=== PATIENT | female | born 1980 | race Caucasian/White ===

== ENCOUNTER 2016-10-09 07:54 | Emergency (ER) | payer MEDICAID ==
--- NOTE | 2016-10-09 08:04 | UCPHY ---
H & P Time Seen by Provider: 10/09/16 07:57 Patient Type: Established HPI/ROS: HPI Sore throat. 35-year-old female by private vehicle with her children. She complains of sore throat since this morning. She is able to swallow liquids without difficulty. No voice changes or difficulty breathing. Her two kids are here with sore throat as well. ROS: Constitutional: No fever, no chills. No weakness. Eyes: No discharge. No changes in vision. ENT: As above. No nasal congestion or rhinorrhea. Respiratory: No cough. No shortness of breath. Cardiac: No chest pain, no palpitations. Gastrointestinal: No abdominal pain, no vomiting, no diarrhea. Genitourinary: No hematuria. No dysuria or increased frequency with urination. Musculoskeletal: No back pain. No neck pain. No myalgias or arthralgias. Skin: No rashes. Neurological: No headache. No focal weakness or altered sensation. Past medical history: Please see triage note. Social history: Here with her 2 kids. Physical Exam: General Appearance: Alert, no distress. This patient is responding to questions appropriately and in full sentences. This patient appears well- hydrated and well-nourished. Eyes: Pupils equal and round no pallor or injection. No lid edema, erythema or injection. ENT, Mouth: Mucous membranes are moist. The pharyngeal tissues are unremarkable. No edema or swelling. No asymmetry suggestive of abscess. No erythema or exudates. Respiratory: There are no retractions, lungs are clear to auscultation with good air movement bilaterally. Cardiovascular: Regular rate and rhythm. No murmur. Neurological: Motor sensory function is grossly intact. Cranial nerves are normal. Gait is normal. Skin: Warm and dry, no rashes. Musculoskeletal: Neck is supple and nontender. No cervical lymphadenopathy. Extremities are symmetrical. All joints range without pain or impingement. Psychiatric: No agitation. No depression. Database: Rapid strep-negative. EKG: Imaging: Procedures: Emergency department course: 8:30 a.m., mother declines ibuprofen. Rapid strep discussed with her. She feels comfortable going home with her 2 children. Follow-up and return to emergency department precautions reviewed. Ibuprofen dosing discussed. All of her questions were answered. She was discharged in good condition. Differential Diagnosis: The differential diagnosis on this patient includes but is not limited to viral pharyngitis, streptococcal pharyngitis, upper respiratory infection. Retropharyngeal abscess, peritonsillar abscess, tracheitis, epiglottitis unlikely. This represents a partial list of diagnoses considered. These considerations are based on history, physical exam, past history, reassessment and diagnostic testing. Smoking Status: Never smoked Constitutional: Initial Vital Signs Temperature (C) 36.7 C 10/09/16 08:00 Heart Rate 79 10/09/16 08:00 Respiratory Rate 16 10/09/16 08:00 Blood Pressure 148/89 H 10/09/16 08:00 O2 Sat (%) 95 10/09/16 08:00 O2 Delivery Mode Room Air Allergies/Adverse Reactions: No Known Allergies Allergy (Verified 02/02/14 09:40) Home Medications: Medication Instructions Recorded Miscellaneous Medical Supply [NO 1 ea MISC AD 05/27/12 HOME MEDS] Medical Decision Making - Data Points Laboratory Results: 10/09/16 10/09/16 Unknown 08:05 Group A Strep Screen NEGATIVE (NEGATIVE) Group A Strep DNA Pending Departure - Departure Clinical Impression: Pharyngitis Instructions: Pharyngitis (ED) Additional Instructions: Read and follow provided instructions. Follow-up with your primary care physician in 1-2 days for re-evaluation. Ibuprofen dosin mg every 6 hours with meals for the next 3 days only. Return to the emergency department for worsening sore throat, voice changes, high fever, difficulty swallowing. or other serious concerns. Referrals: Mary Larson MD [Primary Care Provider] - As per Instructions - PQRS PQRS Measurement: Not applicable.
[2016-10-09 08:07] VITALS: BP 148/89; PULSE 79; RESP 16; TEMP 98.1; O2SAT 95
== END 2016-10-09 08:33 | disposition home or self-care (01) ==
LOC: CED 07:54
DX: J02.9 Acute pharyngitis, unspecified (principal)
CPT/HCPCS: 87880-PO; 99214-PO; G0463-PO

== ENCOUNTER 2017-06-13 06:02 | Observation (INO) | payer MEDICAID ==
--- NOTE | 2017-06-11 19:04 | GHP ---
[f rep st] PREOP HISTORY AND PHYSICAL DATE OF ADMISSION: 06/13/2017 PROCEDURE TO BE PERFORMED: Total laparoscopic hysterectomy, bilateral salpingectomy. PREOPERATIVE DIAGNOSIS: Menometrorrhagia and dysfunctional uterine bleeding. HISTORY OF PRESENT ILLNESS: The patient is a 36-year-old, 3, para 3003 with a longstanding h istory of anovulatory cycles and heavy menstrual bleeding. She has used control pills in her l kristian to try to control her bleeding as well as metformin. Most recently, she has been off her c ontrol pills and has significant heavy periods, bleeding for approximately 4 months at a time. Flow is very heavy, needing to change a pad every hour. Has significant cramping lower back pain and clot s. Typically her cycles are every 2 months, and they last several weeks when she does bleed. She hi s had cycles that may be as far apart as every 6 months, and she has longstanding presumptive PCOS di agnosis. Most recently with all of this bleeding, she was on Levora oral contraceptive pills and ble d continuously through those pills for over 2 months. The patient has had 3 children and has complet ed her childbearing. She has undergone a laparoscopic bilateral tubal ligation, and she wishes to hi ve definitive treatment for her heavy bleeding. We discussed alternatives such as a Mirena IUD or a hysteroscopy, D and C, and endometrial ablation. Patient declined all of these options and wishes to have definitive therapy with a hysterectomy. During her workup, she had an endometrial biopsy, whic h was negative for hyperplasia, dysplasia, or malignancy. She had a pelvic ultrasound which did reve al a thickened endometrium, which was 2.5 cm. No fibroids were seen, possible endometrial polyp in t he lining, bilateral ovaries were normal. PAST OBSTETRICAL HISTORY: She has had 3 full-term spontaneous vaginal deliveries without complicatio n. Babies were all over 8 pounds in 1997, 2008, and 2010. PAST SURGICAL HISTORY: Her only surgery is a laparoscopic bilateral tubal ligation. PAST MEDICAL HISTORY: Significant for obesity. The patient is 130 kg, and she has presumptive type 2 diabetes diagnosis. Patient says most recently her primary care doctor has said she is "prediabeti c." She has been treated with metformin 750 mg b.i.d.; however, she is noncompliant with this, does not take it regularly due to side effects of diarrhea. On screening blood work, she had an elevated fasting glucose at 139 with an elevated hemoglobin A1c 6.8 and an insulin level of 59.5. Patient deedee l follow up with her primary care doctor regarding her glucose control to optimize healing post surge ry. No other known medical problems. PAST GYNECOLOGICAL HISTORY: She has longstanding polycystic ovarian cyst syndrome with anovulatory c ycles and obesity. She has no history of any abnormal Paps or any STDs. She had a normal Pap smear done on May 29, 2017 and the above-mentioned normal endometrial biopsy. No other significant g ynecological problems. SOCIAL HISTORY: She is . She lives with her and her 3 children. She denies tobacco, alcohol, or drug use or any other substances. She has mild exercise with walking daily. FAMILY HISTORY: Her father has type 2 diabetes as well as heart disease and high blood pressure. Ted tristan also has hypertension and arthritis, and she gets migraines. Her brother has bipolar disorder. No other significant family history. REVIEW OF SYSTEMS: Has a negative review of systems except for HPI as above. OBJECTIVE: VITAL SIGNS: Today blood pressure is 124/76, weight is 287 pounds. GENERAL: She is a w ell-developed, well-nourished, obese white female in no acute distress. LUNGS: Clear to auscultatio n bilaterally. HEART: Regular rate and rhythm, no murmur. ABDOMEN: Soft, obese, nontender, nondis tended. Normal bowel sounds. PELVIC: Normal external genitalia, normal parous cervix. Uterus is a nteverted, anteflexed, mobile, nontender. There are no palpable masses. Exam is compromised seconda ry to patient's body habitus. ASSESSMENT AND PLAN: 36-year-old, 3, para 3003 with anovulatory cycles, significant menometr orrhagia causing heavy cycles of fatigue and interrupting her life. She has completed her childbeari ng and desires definitive therapy with a hysterectomy. She was consented for a total laparoscopic hy sterectomy and bilateral salpingectomy. She understood the risks and benefits. The risks including bleeding; infection; damage to organs, ovaries, bowel, bladder, nerves, blood vessels, ureters; possi ble need for open procedure; possible need for additional procedures, and she realizes this will be d efinitive sterilization. /[id number]/MODL
[~2017-06-13 06:02] MED LIST: ceFAZolin 3 GM in D5W 100 ML IV ONE
[2017-06-13] MEDS ORDERED: LIDOCAINE 1% 2 ML INJ ID PRN (06:31)
[2017-06-13] MEDS ORDERED: LR 1,000 ML IV ONE (06:31)
[2017-06-13] MEDS ORDERED: MIDAZOLAM 2 MG/2 ML VIAL IVP ONE (06:41)
--- NOTE | 2017-06-13 06:41 | PDANEPAE ---
ANE History of Present Illness 36 yo F here for hysteroctomy ANE Past Medical History - Cardiovascular History Hx Hypertension: No Hx Arrhythmias: No Hx Chest Pain: No Hx Coronary Artery / Peripheral Vascular Disease: No Hx CHF / Valvular Disease: No Hx Palpitations: No - Pulmonary History Hx COPD: No Hx Asthma/Reactive Airway Disease: No Hx Recent Upper Respiratory Infection: No Hx Oxygen in Use at Home: No Hx Sleep Apnea: No Sleep Apnea Screening Result - Last Documented: Negative - Neurologic History Hx Cerebrovascular Accident: No Hx Seizures: No Hx Dementia: No - Endocrine History Hx Diabetes: Yes Obesity: moderate - Renal History Hx Renal Disorders: No - Liver History Hx Hepatic Disorders: No - Neurological & Psychiatric Hx Hx Neurological and Psychiatric Disorders: No - Cancer History Hx Cancer: No - Congenital Disorder History Hx Congenital Disorders: No - GI History Hx Gastrointestinal Disorders: No - Other Health History Other Health History: none - Chronic Pain History Chronic Pain: No - Surgical History Prior Surgeries: none ANE Review of Systems Review of Systems: - Exercise capacity METS (RN): 4 METS ANE Patient History - Allergies Allergies/Adverse Reactions: No Known Allergies Allergy (Verified 02/02/14 09:40) - Home Medications Home medications: home medication list seen and reviewed - NPO status NPO Status: no food or drink >8 hours NPO Since - Liquids (Date): 06/12/17 NPO Since - Liquids (Time): 20:00 NPO Since - Solids (Date): 06/12/17 NPO Since - Solids (Time): 19:30 - Anes Hx Anes Hx: no prior problems - Smoking Hx Smoking Status: Never smoked - Alcohol Use Alcohol Use: None - Family Anes Hx Family Anes Hx: none Family Hx Anesthesia Complications: none ANE Labs/Vital Signs - Vital Signs Blood Pressure: 163/94 Heart Rate: 81 Respiratory Rate: 18 O2 Sat (%): 93 Height: 160.02 cm Weight: 90.718 kg ANE Physical Exam - Airway Neck exam: increased neck circumference Mallampati Score: Class 2 Mouth exam: normal dental/mouth exam - Pulmonary Pulmonary: no respiratory distress, clear to auscultation - Cardiovascular Cardiovascular: regular rate and rhythym - ASA Status ASA Status: II ANE Anesthesia Plan Anesthesia Plan: general endotracheal anesthesia
[2017-06-13] MEDS ORDERED: BUPIVACAINE 0.5% 30 ML SDV ONE (07:07)
[2017-06-13] MEDS ORDERED: fentaNYL 100 MCG/2 ML INJ ONE ×4 (07:12→13:34)
[2017-06-13] MEDS ORDERED: PROPOFOL 200 MG/20 ML VIAL ONE ×2 (07:12)
[2017-06-13] MEDS ORDERED: ROCURONIUM 100 MG/10 ML VIAL ONE (07:14)
[2017-06-13] MEDS ORDERED: LIDOCAINE 2% 100 MG/5 ML SYR ONE (07:16)
--- NOTE | 2017-06-13 07:20 | PDHPUP ---
History & Physical Update H&P update statement: This history and physical update is based on an assessment of the patient which was completed after admission or registration (within 24 hours), but prior to the surgery/procedure.
[2017-06-13] MEDS ORDERED: LABETALOL HCL 5 MG/ML 20 ML MDV ONE (08:40)
[2017-06-13] MEDS ORDERED: ONDANSETRON 4 MG/2 ML VIAL ONE ×2 (09:23→13:02)
[2017-06-13] MEDS ORDERED: DEXAMETHASONE 4 MG/ML VIAL ONE (09:23)
[2017-06-13] MEDS ORDERED: ROCURONIUM 50 MG/5 ML VIAL ONE (09:46)
[2017-06-13] MEDS ORDERED: ceFAZolin 1 GM VIAL ONE ×2 (10:33)
[2017-06-13] MEDS ORDERED: METHYLENE BLUE 0.5% 50 MG/10 ML AMP ONE (11:18)
[2017-06-13] MEDS ORDERED: ONDANSETRON 4 MG/2 ML VIAL IVP PRN ×2 (11:54→13:00)
[2017-06-13] MEDS ORDERED: NALOXONE HCL 0.4 MG/ML INJ IVP PRN ×2 (11:54→13:06)
[2017-06-13] MEDS ORDERED: HYDROmorphONE/DILAUDID 1 MG/ML INJ ONE (13:00)
[2017-06-13] MEDS ORDERED: LR 1,000 ML IV SCH (13:00)
[2017-06-13] MEDS ORDERED: HYDROmorphONE/DILAUDID 6 MG/30 ML PCA IV PRN (13:06)
[2017-06-13] MEDS ORDERED: LACTULOSE 20 GM/30 ML UDCUP PO PRN (13:06)
[2017-06-13] MEDS ORDERED: MAGNESIUM HYDROXIDE 30 ML UDCUP PO PRN (13:06)
[2017-06-13] MEDS ORDERED: POLYETHYLENE GLYCOL 3350 17 GM PKT PO PRN (13:06)
[2017-06-13] MEDS ORDERED: BISACODYL 10 MG SUPP PR PRN (13:06)
[2017-06-13] MEDS: fentaNYL 100 MCG/2 ML INJ IVP PRN ×4 (13:07→14:00)
--- NOTE | 2017-06-13 13:09 | POSTOPPROG ---
Post Op Note Date of Operation: 06/13/17 Surgeon: Renate Lawrence Vacuum Furnace Operator: Dr Nuria Abad Anesthesiologist: Dr Meng Carias Anesthesia: GET(General Endotracheal) Pre-op Diagnosis: menorrhagia Post-op Diagnosis: same Procedure: TLH B salpingectomy, removal of small bowel adhesion Findings: normal uterus, tubes and ovaries, small bowel adhesion Inf/Abcess present in the surg proc area at time of surgery?: No Depth: Organ Space EBL: 100-500 Total fluids administered: 2200 Specimen(s): uterus with cervix, B fallopian tubes and small bowel adhesion
[2017-06-13] MEDS: HYDROmorphONE/DILAUDID 1 MG/ML INJ IVP PRN ×3 (13:13→13:45)
[2017-06-13] MEDS ORDERED: KETOROLAC 30 MG/1 ML SDV ONE (13:34)
[2017-06-13] MEDS: KETOROLAC 30 MG/1 ML SDV IVP PRN ×2 (13:34→19:42)
--- NOTE | 2017-06-13 14:32 | GOP ---
[f rep st] OPERATIVE REPORT DATE OF OPERATION: 06/13/2017 SURGEON: Renate Lawrence MD EXHIBITION SPECIALIST: DO Dr. Isaiah Woo performed his separate procedure of the small bowel adhesion. ANESTHESIA: General anesthesia. ANESTHESIOLOGIST: Dr. Adam Westbrook PREOPERATIVE DIAGNOSIS: Menometrorrhagia and dysfunctional uterine bleeding. POSTOPERATIVE DIAGNOSIS: Menometrorrhagia and dysfunctional uterine bleeding. PROCEDURE PERFORMED: Total laparoscopic hysterectomy, bilateral salpingectomy, and removal of a smal l bowel adhesion. FINDINGS: SPECIMENS: Pathologic specimen will be uterus with cervix and bilateral fallopian tubes, and small b owel adhesion. ESTIMATED BLOOD LOSS: Estimated blood loss for the procedure was 150 cc. INDICATIONS: The patient is a 36-year-old 3, para 3-0-0-3, with a longstanding history of an ovulatory cycles and heavy menstrual bleeding. She has had polycystic ovarian syndrome for most of h er life and has episodes where she has periods between every 2 and 6 months. When she does have phillip ods, they are very heavy. She can bleed for up to 4 months at a time. Flow is heavy, needs to hig[place] e a pad every hour, with significant lower back pain and clots. When she has bleeding, it is disrupt da of her life, and she is unable to work or take care of her kids. She had been controlled with or al contraceptive pills on and off for many years. However, she wishes to avoid this and not do control pills any longer. We discussed other alternative methods to treat her dysfunctional bleedin g, such as a Mirena IUD, and she declined this. She wanted definitive therapy with a hysterectomy. She was consented for the procedure. She understood the risks and benefits, the risks including blee ding, infection, damage to organs, ovaries, tubes, bowel, bladder, nerves, blood vessels, ureters, ne ed for open procedure, need for additional procedures. She understood these risks and benefits and a greed to proceed. DESCRIPTION OF PROCEDURE: The patient was taken to the operating room, where she was placed under ge neral anesthesia without difficulty. She was prepped and draped in the dorsal lithotomy position and a Lorenz catheter was placed in her bladder. After a WHO time-out was performed, an open-sided specu lum was placed in the vagina, and a single-tooth tenaculum was used to grasp the anterior lip of the cervix. The cervix was medium size. Her uterus sounded to 8 cm. The WILLOW uterine manipulator was t hen inserted through the internal os, and the balloon was inflated and it was seated at the top of th e endometrium. The manipulator was advanced around the cervix and uterine manipulation was performed . Attention was then turned to the abdominal portion of the procedure and, after injection of Marcaine, a 5 mm skin incision was made in the infraumbilical skinfold. A Veress needle was placed through th at incision without difficulty. There was good drop in pressure upon entry to the peritoneal cavity, and pneumoperitoneum was created with carbon dioxide gas. Under direct visualization, an atraumatic 5 mm trocar was then placed through this infraumbilical port. The patient was placed in Trendelenbu rg to allow for visualization of the pelvis. After injection of Marcaine, a 5 mm trocar was placed o n the right side and a 10 mm trocar was placed on the left, all without difficulty, and the balloons were inflated. Upon inspection, the uterus, tubes, and ovaries were grossly within normal limits. Patient has previ ously had a bilateral tubal ligation. The left fallopian tube was grasped at the fimbriated end, and the LigaSure device was used to cauterize and dissect the tube from the fimbria all the way to the c ornual region of the uterus. This was cauterized and cut, and the tube was removed directly through the 10 mm port. The round ligament was then identified, cauterized, suture ligated with the LigaSure , utero-ovarian ligaments, and down the uterus to the cardinal ligament. Broad ligament was entered and reflected in the anterior and posterior reflections, and dissection was made over the anterior po rtion to allow for manipulation of the bladder flap. The uterine vessels were then identified, sutur e ligated and cut with the LigaSure, and good hemostasis was obtained. Identical procedure was then performed on the right side, starting at the right tube at the fimbriated end, and that was removed d irectly through the 10 mm port. Dissection was performed over the round ligament, the utero-ovarian ligament, the cardinal ligaments. The bladder flap was continued on the right side and identificatio n of the right uterine vessels was performed. After there was manipulation of the WILLOW uterine manip ulator, and it was pressed caudad, the WILLOW was identified through the vaginal wall and the LigaSure hook device was used to cauterize the vaginal wall over the WILLOW uterine manipulator. This was perfo rmed anteriorly to posteriorly. Because of difficulties with visualization after pneumoperitoneum wa s lost and the manipulator fell out of the uterine cavity, we made the decision to go down from below and with retractors. We completed the vaginal cuff vaginally with Cezar clamps and sutures of 0 Brice ryl, and the uterus was removed through the vagina without difficulty. A sterile lap sponge and a gl ove was then placed vaginally. We returned to the laparoscopic approach. The vaginal cuff was close d with the V-Loc 0 Vicryl suture from right to left. Interrupting sutures closed the vaginal cuff wi thout difficulty and good hemostasis was assured. Upon inspection of the pelvis, after thorough irri gation, there was noted to be a large adhesive band from the small bowel to the anterior abdominal wa ll. We were unsure as to the significance of this band and called Dr. Isaiah John, General Surgery , to evaluate. He felt that the band should be removed. We removed it from the anterior wall with t he LigaSure device, and then he removed the band also from the small bowel with the LigaSure directly , and there was good hemostasis obtained. We inspected and found a normal appendix. We were not abl e to visualize the liver and the gallbladder due to the patient anatomy. Cystoscopy was performed an d both ureters were seen to normally extrude and peristalse. The patient tolerated the procedure wel l. Sponge, lap, needle, and instrument counts were correct x2. Patient went to the recovery room in good condition. FLUIDS REPLACED: Fluids were 1400 cc. URINE OUTPUT: 200 cc. /[id number]/MODL
[2017-06-13] MEDS: OXYCODONE/APAP 5/325 TAB PO PRN (15:25)
--- NOTE | 2017-06-13 17:09 | POSTANESTH ---
Post Anesthetic Evaluation Cardiovascular Status: Normal, Stable, Similar to Pre-Op Cond Respiratory Status: Normal, Stable, Similar to Pre-op Cond. Level of Consciousness/Mental Status: Can Participate in Eval, Alert and Oriented Pain Control: Adequate, Prn Tx Ordered Nausea/Vomiting Control: Adequate, Prn Tx Ordered Complications Possibly Related to Anesthesia: None Noted
[2017-06-13] MEDS: IBUPROFEN 600 MG TAB PO SCH ×2 (17:55→23:16)
[2017-06-13] MEDS: SENNOSIDES/DOCUSATE SODIUM TAB PO SCH (19:42)
[2017-06-14] MEDS: KETOROLAC 30 MG/1 ML SDV IVP PRN ×2 (01:23→07:36)
[2017-06-14 04:39] LABS: % IMMATURE GRANULYOCYTES 0.9 % (0.0-1.1); ABSOLUTE IMMATURE GRANULOCYTES 0.09 10^3/uL (0.00-0.10); ADD DIFF? NO; ADD MORPH? NO; ADD SCAN? NO; ATYPICAL LYMPHOCYTE FLAG 0 (0-99); FRAGMENT RBC FLAG 0 (0-99); HEMATOCRIT 30.9 % (38.0-47.0); HEMOGLOBIN 9.3 g/dL (12.6-16.3); LEFT SHIFT FLG 20 (0-99); LIPEMIA HEMOLYSIS FLAG 80 (0-99); MEAN CELL HEMOGLOBIN 23.8 pg (27.9-34.1); MEAN CELL HEMOGLOBIN CONCENTR. 30.1 g/dL (32.4-36.7); MEAN PLATELET VOLUME 9.2 fL (8.7-11.7); PLATELET CLUMPS FLAG 0 (0-99); PLATELET COUNT 203 10^3/uL (150-400); RED BLOOD CELL COUNT 3.91 10^6/uL (4.18-5.33); RED CELL DISTRIBUTION WIDTH 18.9 % (11.5-15.2)
[2017-06-14] MEDS: IBUPROFEN 600 MG TAB PO SCH ×2 (05:59→12:51)
[2017-06-14 08:06] VITALS: BP 115/73; PULSE 80; RESP 16; TEMP 97.9; O2SAT 96
[2017-06-14] MEDS ORDERED: ENOXAPARIN 40 MG/0.4 ML SYR SC SCH (09:00)
[2017-06-14] MEDS: OXYCODONE/APAP 5/325 TAB PO PRN (09:16)
[2017-06-14] MEDS: SENNOSIDES/DOCUSATE SODIUM TAB PO SCH (09:17)
[2017-06-14] MEDS ORDERED: IRON POLYSAC/IRON HEME 28 MG TAB PO SCH (10:30)
--- NOTE | 2017-06-14 10:34 | SOAPPROG ---
[facility] Progress Note Assessment/Plan: Assessment: 36 y/o POD #1 s/p TLH B salpingectomy doing well. Plan: Started patient on Bifera QD, po pain meds. We will encourage ambulation, checking glucose measurements etc. Expect d/c home this afternoon. 06/14/17 10:37 Subjective: Pt is doing well this am. She has good pain control with Percocet today and is off her Dilaudid [employer] BLASTING. She is tolerating reg diet and her sequeira was d/c. She hasn't gotten out of bed yet, but will now. Her most significant pain is in her shoulder, but it is also gradually improving. Objective: Vital Signs Temp Pulse Resp BP Pulse Ox 36.6 C 80 16 115/73 96 06/14/17 08:00 06/14/17 08:00 06/14/17 08:00 06/14/17 08:00 06/14/17 08:00 Laboratory Results 06/14/17 04:15 06/13/17 06/14/17 06/15/17 05:59 05:59 05:59 Intake Total 2475 Output Total 2025 Balance 450 - Pending Discharge Pending Discharge Within 24 Hours: Yes Pending Discharge Date: 06/15/17 Pending Discharge Time: 11:00 Physical Exam - Physical Exam General Appearance: WD/WN, alert, no apparent distress Neck: non-tender, full range of motion, supple Respiratory: chest non-tender, lungs clear, normal breath sounds Cardiac/Chest: regular rate, rhythm Abdomen: normal bowel sounds, non-tender, soft, other (incision c/d/i) Extremities: swelling (tr), Nithya's sign (neg) ICD10 Worksheet Patient Problems: Problems Problem Status Onset S/P laparoscopic hysterectomy Acute - ICD10 Problem Qualifiers (1) S/P laparoscopic hysterectomy
== END 2017-06-14 13:10 | disposition home or self-care (01) ==
LOC: FSGY 06:02 → F3E 13:00 → FOB 15:00
PROVIDERS: ADMIT Obstetrics & Gynecology; ATTEND Obstetrics & Gynecology
PROC: 0UT9FZZ Resection of Uterus, Via Natural or Artificial Opening With Percutaneous Endoscopic Assistance (ICD-10-PCS; principal; 2017-06-13 07:15)
PROC: 0UTC8ZZ Resection of Cervix, Via Natural or Artificial Opening Endoscopic (ICD-10-PCS; principal; 2017-06-13 07:15)
PROC: 0UT24ZZ Resection of Bilateral Ovaries, Percutaneous Endoscopic Approach (ICD-10-PCS; principal; 2017-06-13 07:15)
PROC: 0UT74ZZ Resection of Bilateral Fallopian Tubes, Percutaneous Endoscopic Approach (ICD-10-PCS; principal; 2017-06-13 07:15)
PROC: 0DN84ZZ Release Small Intestine, Percutaneous Endoscopic Approach (ICD-10-PCS; 2017-06-13 07:15)
DX: N92.0 Excessive and frequent menstruation with regular cycle (principal); E28.2 Polycystic ovarian syndrome; R73.03 Prediabetes; Z91.14 Patient's other noncompliance with medication regimen; E66.9 Obesity, unspecified; Z68.35 Body mass index [BMI] 35.0-35.9, adult
CPT/HCPCS: 58552; G0378; J0690; J1100; J1170; J1650; J1885; J2001; J2250; J2405; J2704; J3010; J3490; Q9968

== ENCOUNTER 2018-01-07 13:55 | Emergency (ER) | payer MEDICAID ==
[2018-01-07 14:03] VITALS: BP 148/85
--- NOTE | 2018-01-07 14:11 | EDPHY ---
H & P Stated Complaint: sore throat and songestion started saturday, vomitting x2 Time Seen by Provider: 01/07/18 13:59 HPI/ROS: CHIEF COMPLAINT: Sore throat HISTORY OF PRESENT ILLNESS: The patient is a 37-year-old female who comes to the emergency department complaining of a sore throat. She states that for the last 3 days she has had sinus congestion and throat pain. Today she had a fever of 100.4. She has had a mild cough. She does not have exudate on her tonsils. Her daughter was diagnosed clinically with strep throat a week ago and improved on the last day of [facility]-Addy. REVIEW OF SYSTEMS: Constitutional: denies: chills, fever, recent illness, recent injury EENTM: See HPI Respiratory: denies: cough, shortness of breath Cardiac: denies: chest pain, irregular heart rate, lightheadedness, palpitations Gastrointestinal/Abdominal: denies: abdominal pain, diarrhea, nausea, vomiting, blood streaked stools Genitourinary: denies: dysuria, frequency, hematuria, pain Musculoskeletal: denies: joint pain, muscle pain Skin: denies: lesions, rash, jaundice, bruising Neurological: denies: headache, numbness, paresthesia, tingling, dizziness, weakness Hematologic/Lymphatic: denies: blood clots, easy bleeding, easy bruising Immunologic/allergic: denies: HIV/AIDS, transplant EXAM: GENERAL: Well-appearing, obese and in no acute distress. HEAD: Atraumatic, normocephalic. EYES: Pupils equal round and reactive to light, extraocular movements intact, sclera anicteric, conjunctiva are normal. ENT: TMs normal, nares patent, oropharynx slightly erythematous but without exudates. Moist mucous membranes. No palpable lymphadenopathy NECK: Normal range of motion, supple without lymphadenopathy or JVD. LUNGS: Breath sounds clear to auscultation bilaterally and equal. No wheezes rales or rhonchi. HEART: Regular rate and rhythm without murmurs, rubs or gallops. ABDOMEN: Soft, nontender, normoactive bowel sounds. No guarding, no rebound. No masses appreciated. BACK: No CVA tenderness, no spinal tenderness, step-offs or deformities EXTREMITIES: Normal range of motion, no pitting or edema. No clubbing or cyanosis. NEUROLOGICAL: Cranial nerves II through XII grossly intact. Normal speech, normal gait. 5/5 strength, normal movement in all extremities, normal sensation PSYCH: Normal mood, normal affect. SKIN: Warm, dry, normal turgor, no visible rashes or lesions. Source: Patient Exam Limitations: No limitations - Personal History LMP (Females 10-55): Hysterectomy - Medical/Surgical History Hx Asthma: No Hx Chronic Respiratory Disease: No Hx Diabetes: Yes Hx Cardiac Disease: No Hx Renal Disease: No Hx Cirrhosis: No Hx Alcoholism: No Hx HIV/AIDS: No Hx Splenectomy or Spleen Trauma: No Other PMH: DM type 2, hyst - Family History Significant Family History: No pertinent family hx - Social History Smoking Status: Never smoked Alcohol Use: Sober Constitutional: Initial Vital Signs Temperature (C) 37.0 C 01/07/18 13:59 Heart Rate 95 01/07/18 13:59 Respiratory Rate 18 01/07/18 13:59 Blood Pressure 148/85 H 01/07/18 13:59 O2 Sat (%) 94 01/07/18 13:59 O2 Delivery Mode Room Air Allergies/Adverse Reactions: No Known Allergies Allergy (Verified 01/07/18 13:59) Home Medications: Medication Instructions Recorded NK [No Known Home Meds] 01/07/18 Medical Decision Making ED Course/Re-evaluation: 2:25 p.m. We discussed the swab results. I suspect that the patient's pharyngitis is viral. I will treat her with a dose of Decadron encouraged antipyretics and hydration and rest. She understands and agrees with this plan. We will call her tomorrow if the culture comes back positive. Differential Diagnosis: Partial list of the Differential diagnosis considered include but were not limited to; viral pharyngitis, bacterial pharyngitis, upper respiratory tract infection and although unlikely based on the history and physical exam, I also considered abscess, phlegmon, pneumonia, meningitis, sepsis. I discussed these differential diagnoses and the plan with the patient as well as the usual and expected course. The patient understands that the diagnosis is provisional and that in medicine we are not always correct and that further workup is often warranted. Usual and customary warnings were given. All of the patient's questions were answered. The patient was instructed to return to the emergency department should the symptoms at all worsen or return, otherwise to followup with the physician as we discussed. - Data Points Laboratory Results: 01/07/18 01/07/18 Unknown 14:00 Group A Strep Screen NEGATIVE (NEGATIVE) Group A Strep DNA Pending Medications Given: Discontinued Medications Dexamethasone (Decadron) 10 mg PO EDNOW ONE Stop: 01/07/18 14:25 Last Admin: 01/07/18 14:28 Dose: 10 mg Departure - Departure Disposition: Home, Routine, Self-Care Clinical Impression: Acute pharyngitis Qualifiers: Pharyngitis/tonsillitis etiology: unspecified etiology Qualified Code(s): J02.9 - Acute pharyngitis, unspecified Condition: Fair Instructions: Pharyngitis (ED) Referrals: Mary Larson MD [Primary Care Provider] - 2-3 days, call for appt.
[2018-01-07] MEDS ORDERED: DEXAMETHASONE 4 MG TAB PO ONE (14:24)
== END 2018-01-07 14:33 | disposition home or self-care (01) ==
LOC: CED 13:55
DX: J02.9 Acute pharyngitis, unspecified (principal); E11.9 Type 2 diabetes mellitus without complications
CPT/HCPCS: 87880-PO